=== PATIENT | female | born 1990 | race American Indian/Alaskan Native ===

== ENCOUNTER 2021-05-18 16:24 | Emergency (ER) | payer SELFPAY ==
[2021-05-18] MEDS ORDERED: ClonazePAM 1 MG Tab PO ONE (17:24)
--- NOTE | 2021-05-18 17:29 | EDM.PDOCBH ---
ED HPI GENERAL MEDICAL PROBLEM - General Chief Complaint: Behavioral/Psych Stated Complaint: 1724 Time Seen by Provider: 05/18/21 17:30 Source of Information: Reports: Patient, Significant Other History Limitations: Reports: No Limitations - History of Present Illness INITIAL COMMENTS - FREE TEXT/NARRATIVE: This is a 30-year-old female with history of PTSD, anxiety, who presents with a friend concerns of extreme anxiety. She reports that she self discontinued her medications approximately 4 to 5 months ago that she is supposed to be on for her PTSD and mental health, these include Klonopin, Seroquel, Zoloft, and perhaps another psychiatric medication. These are managed through mental health clinic in [place]. She now lives locally here in [place] and has not establish care with a mental health provider or primary care physician. She reports ongoing issues with auditory hallucinations, they are intermittent, they generally tell her to run, they do not tell her to hurt herself or others. She has no thoughts of suicide. She does not feel unsafe, but is quite uncomfortable by her anxiety. She denies any illicit drug use, reports she is clean from this but does have a history of. - Related Data Allergies Allergy/AdvReac Type Severity Reaction Status Date / Time Penicillins Allergy Airway Verified 05/18/21 17:43 Tightness Home Meds: Home Meds ARIPiprazole [Abilify] 20 mg PO DAILY 05/18/21 [History] QUEtiapine [SEROquel] 100 mg PO DAILY 05/18/21 [History] Sertraline [Zoloft] 100 mg PO DAILY 05/18/21 [History] clonazePAM [Klonopin] 1 mg PO TID PRN #4 tablet 05/18/21 [Rx] ED ROS GENERAL - Review of Systems Review Of Systems: See Below Constitutional: Reports: No Symptoms HEENT: Reports: No Symptoms Respiratory: Reports: No Symptoms Cardiovascular: Reports: No Symptoms Endocrine: Reports: No Symptoms GI/Abdominal: Reports: No Symptoms : Reports: No Symptoms Musculoskeletal: Reports: No Symptoms Skin: Reports: No Symptoms Neurological: Reports: No Symptoms Psychiatric: Reports: Anxiety, Hallucinations Hematologic/Lymphatic: Reports: No Symptoms Immunologic: Reports: No Symptoms ED EXAM, BEHAVIORAL HEALTH - Physical Exam Exam: See Below Exam Limited By: No Limitations General Appearance: Alert, Anxious Ears: Normal External Exam Nose: Normal Inspection Throat/Mouth: Normal Inspection Head: Atraumatic, Normocephalic Neck: Normal Inspection Respiratory/Chest: No Respiratory Distress Cardiovascular: Regular Rate, Rhythm GI/Abdominal: No Distention Back Exam: Normal Inspection Extremities: Normal Inspection Neurological: Alert, Normal Mood/Affect Psychiatric: Alert, Oriented, Tearful. No: Flight of Ideas, Homicidal Thoughts, Suicidal Plan, Suicidal Thoughts, Visual Hallucinations, Grandiose Thoughts, Pressured Speech, Paranoid Thoughts Skin Exam: Warm, Dry COURSE, BEHAVIORAL HEALTH COMP - Course Vital Signs: Last Vital Signs Temp 36.7 C 05/18/21 17:53 Pulse 86 05/18/21 17:53 Resp 16 05/18/21 17:53 BP 143/87 H 05/18/21 17:53 Pulse Ox 97 05/18/21 17:53 Orders, Labs, Meds: Medications Discontinued Medications Generic Name Dose Route Start Last Admin Trade Name Freq PRN Reason Stop Dose Admin Clonazepam 1 mg 05/18/21 17:24 05/18/21 17:58 Clonazepam 1 Mg Tab PO 05/18/21 17:25 1 mg BID ONE Administration Discharge vs Psych Eval/Treatment:: 30-year-old female with extensive mental health history, she reports history PTSD, anxiety, perhaps other mental health diagnoses. She is new to our healthcare system. She is very tearful on exam and accompanied by a friend and have concerns that her anxiety has been been increasing as of late making it difficult for her to leave the home or work. She is hoping to have her mental health medications refilled and looking for local resources. She does endorse some occasional auditory hallucinations, but denies that they're telling her to hurt self or others. She is not having any suicidal thoughts. I do not think she is unsafe to self currently. She was given a dose of Klonopin here and feels much better. I discussed with her that I do not initiate psychiatric medications in the ED. I wrote her for four additional doses until she is able to establish care with a primary care physician. We placed a referral for her to the primary care clinic. She knows she can return to the ER anytime if she is feeling unsafe. 05/18/21 18:14 Departure - Departure Time of Disposition: 18:00 Disposition: Home, Self-Care 01 Clinical Impression: Anxiety - Discharge Information *PRESCRIPTION DRUG MONITORING PROGRAM REVIEWED*: No *COPY OF PRESCRIPTION DRUG MONITORING REPORT IN PATIENT CINDY: No Referrals: Blanca Crowley MD [Primary Care Provider] - Forms: ED Department Discharge Additional Instructions: As discussed, you can use the Klonopin as needed until you're able to establish care with a primary physician. If you are ever feeling unsafe, we are always happy to reevaluate you in the ED and find appropriate resources. We have placed a referral to the primary care clinics for you. Thank you for trusting us to care for you today. Sepsis Event Note (ED) - Focused Exam Vital Signs: Vital Signs Temp Pulse Resp BP Pulse Ox 05/18/21 17:53 36.7 C 86 16 143/87 H 97 05/18/21 17:08 36.7 C 86 16 143/87 H 97
== END 2021-05-18 18:57 | disposition home or self-care (01) ==
LOC: JP.ED 16:24
DX: F41.9 Anxiety disorder, unspecified (principal); Z88.0 Allergy status to penicillin; Z79.899 Other long term (current) drug therapy
CPT/HCPCS: 99283; A9270